=== PATIENT | female | born 1960 | race Caucasian/White ===

== ENCOUNTER 2020-02-10 13:36 | Observation (INO) ==
[2020-02-10 16:26] LABS: BUN/Creatinine Ratio 18 (6-26); Blood Urea Nitrogen 14 mg/dL (6-20); Calcium 8.6 mg/dL (8.6-10.3); Carbon Dioxide 24 mEq/L (23-29); Chloride 106 mEq/L (98-107); Glucose 194 mg/dL (70-105); Osmolality,Calculated 288 (280-300); Sodium 136 mEq/L (136-145); eGFR For African Americans > 60 (> 60); eGFR For Non-African Americans > 60 (> 60)
[2020-02-10] MEDS ORDERED: D5% in Water 1,000 ML IVC PRN (18:10)
[2020-02-10] MEDS ORDERED: Dextrose Gel 15 GM/37.5 ML TUBE PO PRN ×2 (18:10)
[2020-02-10] MEDS ORDERED: *HR* Dextrose 50 % in Water (Vial) 50 ML VIAL IVP PRN (18:10)
[2020-02-10] MEDS ORDERED: traZODone 50 MG TABLET PO PRN (18:14)
[2020-02-10] MEDS ORDERED: Melatonin 3 MG TABLET PO PRN (18:14)
[2020-02-10] MEDS ORDERED: hydrOXYzine pamoate 25 MG CAPSULE PO PRN (18:14)
[2020-02-10] MEDS ORDERED: Naloxone 0.4 MG/ML INJ IVP PRN (18:17)
[2020-02-10] MEDS: carvediloL 6.25 MG TABLET PO SCH (18:35)
[2020-02-10] MEDS ORDERED: Insulin DETEMIR 100 UNIT/ML X5UNITS SUBQ SCH (21:00)
[2020-02-10] MEDS ORDERED: OLANZapine 5 MG TAB.RAPDIS PO SCH (21:00)
[2020-02-10 22:01] LABS: Estimated Average Glucose 324 mg/dl; Hemoglobin A1C 12.9 %
[2020-02-10] MEDS: Insulin LISPRO 300 UNITS/3 ML VIAL SUBQ SCH (23:33)
[2020-02-11 01:18] LABS: Basophils % 0.4 %; Eosinophils # 0.3 K/mcL (0.0-0.6); Eosinophils % 3.4 %; Hematocrit 37.6 % (35.3-44.9); Immature Granulocytes % 0.4 % (0-4); Lymphocytes % 30.1 %; Mean Corpuscular HGB Conc 31.9 g/dL (31.6-35.5); Mean Corpuscular Hemoglobin 27.8 pg (28.0-33.3); Mean Corpuscular Volume 87.2 fL (83.0-100.0); Mean Platelet Volume 11.4 fL (9.4-12.4); Monocytes # 0.9 K/mcL (0.0-1.3); Monocytes % 9.3 %; Neutrophils # 5.5 K/mcL (1.6-8.9); Platelet Count 225 K/mcL (140-400); Red Blood Count 4.31 M/mcL (3.82-4.97); Red Cell Distribution Width 13.6 % (11.5-14.5); Segmented Neutrophils % 56.4 %; White Blood Count 9.8 K/mcL (4.3-11.1)
[2020-02-11 01:32] LABS: Alanine Aminotransferase 70 Units/L (7-52); Albumin 3.6 g/dL (3.5-5.7); Albumin/Globulin Ratio 1.7 (1.1-2.2); Alkaline Phosphatase 120 Units/L (34-104); Aspartate Amino Transferase 43 Units/L (13-39); BUN/Creatinine Ratio 17 (6-26); Bilirubin,Total 0.4 mg/dL (0.3-1.0); Blood Urea Nitrogen 15 mg/dL (6-20); Calcium 8.7 mg/dL (8.6-10.3); Carbon Dioxide 23 mEq/L (23-29); Chloride 103 mEq/L (98-107); Globulin 2.1 g/dL (2.4-3.5); Glucose 372 mg/dL (70-105); Osmolality,Calculated 294 (280-300); Sodium 134 mEq/L (136-145); Total Protein 5.7 g/dL (6.4-8.9); eGFR For African Americans > 60 (> 60); eGFR For Non-African Americans > 60 (> 60)
[2020-02-11] MEDS: Insulin LISPRO 300 UNITS/3 ML VIAL SUBQ SCH ×2 (05:58→12:07)
[2020-02-11] MEDS ORDERED: Regadenoson 0.4 MG/5 ML SYRINGE IVP ONE (06:45)
[2020-02-11] MEDS ORDERED: Insulin LISPRO 300 UNITS/3 ML VIAL SUBQ SCH (07:30)
[2020-02-11] MEDS: carvediloL 6.25 MG TABLET PO SCH (08:53)
[2020-02-11] MEDS ORDERED: Loratadine 10 MG TABLET PO SCH (09:00)
[2020-02-11] MEDS ORDERED: haloperidoL 5 MG TABLET PO SCH (09:00)
[2020-02-11] MEDS ORDERED: Aspirin Enteric Coated 81 MG Tablet PO SCH (13:15)
[2020-02-11 16:25] VITALS: BP 144/92
== END 2020-02-11 17:24 | disposition home or self-care (01) ==
LOC: 2NNU
PROVIDERS: ADMIT Student in an Organized Health Care Education/Training Program; ATTEND Student in an Organized Health Care Education/Training Program